=== PATIENT | female | born 1940 | race Caucasian/White ===

== ENCOUNTER 2016-12-02 07:14 | Outpatient (CLI) | payer MEDICARE ==
[2016-12-02 07:33] LABS: Clarity Slightly Cloudy (Clear)
[2016-12-02 07:34] LABS: Bilirubin Negative (Negative); Blood, Urine Trace (Negative); Glucose, Urine (Dipstick) Negative (Negative); Leukocyte Moderate (Negative); Nitrite Positive (Negative); Protein, Urine (Dipstick) Negative (Neg-Trace); Urobilinogen 0.2 mg/dL (0.2-1.0)
[2016-12-02 07:36] LABS: Bacteria/HPF 2+ HPF (None Seen); RBC/HPF 0-3 HPF (0-3)
[2016-12-02 07:47] LABS: Cardiac Risk 3.6 (Less than 4.5)
== END 2016-12-02 07:15 | disposition home or self-care (01) ==
LOC: MADLABBHPM 07:14
PROVIDERS: ATTEND Family Medicine
DX: E78.00 Pure hypercholesterolemia, unspecified (principal); E11.9 Type 2 diabetes mellitus without complications; I10 Essential (primary) hypertension; R79.9 Abnormal finding of blood chemistry, unspecified; E66.9 Obesity, unspecified
CPT/HCPCS: 36415; 80061; 81001; 84443

== ENCOUNTER 2018-03-26 07:09 | Outpatient (CLI) | payer MEDICARE ==
[2018-03-26 08:21] LABS: Anion Gap 14 mmol/L (10-20); BUN (Urea Nitrogen) 19 mg/dL (9.8-20.1); Calc. Creatinine Clearance 0 mL/min (70-130); Calcium 9.9 mg/dL (7.8-10.44); Carbon Dioxide 21 mmol/L (23-31); Chloride 108 mmol/L (98-107); Estimated GFR-MDRD 68; Glucose 147 mg/dL (83-110); Sodium 139 mmol/L (136-145)
== END 2018-03-26 07:10 ==
LOC: MADLABBHPM 07:09
PROVIDERS: ATTEND Family Medicine
DX: N18.3 Chronic kidney disease, stage 3 (moderate) (principal)
CPT/HCPCS: 36415; 80048

== ENCOUNTER 2020-04-13 11:47 | Outpatient (CLI) | payer MEDICARE ==
--- NOTE | 2020-04-13 12:09 | RAD ---
XR Lumbar Spine 2 Or 3 View HISTORY: Acute low back pain COMPARISON: None. FINDINGS: Degenerative changes are present. There is grade 1 anterolisthesis of L4 over L5. No compression frac ture or bony destruction is identified. There are vascular calcifications.
== END 2020-04-13 11:48 | disposition home or self-care (01) ==
LOC: MADRAD 11:47
PROVIDERS: ATTEND Family Medicine
DX: M54.5 Low back pain (principal); M47.816 Spondylosis without myelopathy or radiculopathy, lumbar region; M43.16 Spondylolisthesis, lumbar region; I70.90 Unspecified atherosclerosis
CPT/HCPCS: 72100

== ENCOUNTER 2022-11-10 10:51 | Outpatient (CLI) | payer MEDICARE ==
[2022-11-10 11:42] LABS: Hemoglobin 12.1 g/dL (12.0-16.0); Mean Corpuscular HGB CONC 33.2 g/dL (32.0-36.0); Mean Corpuscular Volume 96.3 fl (78.0-98.0); Mean Platelet Volume 6.3 fL (7.4-10.4); Platelet Count 276 10x3/uL (130-400); RBC Distribution Width 13.9 % (11.5-14.5); Red Blood Cell (RBC) Count 3.78 mill/uL (4.20-5.40); White Blood Cell (WBC) Count 8.6 10x3/uL (4.8-10.8)
[2022-11-10 11:54] LABS: ALT (SGPT) 25 U/L (8-55); AST (SGOT) 30 U/L (5-34); Albumin 3.6 g/dL (3.4-4.8); Alkaline Phosphatase 108 U/L (40-110); Anion Gap 15 mmol/L (10-20); BUN (Urea Nitrogen) 22 mg/dL (9.8-20.1); Bilirubin, Total 0.7 mg/dL (0.2-1.2); Calc. Creatinine Clearance 0 mL/min (70-130); Carbon Dioxide 23 mmol/L (23-31); Cardiac Risk 4.2 (Less than 4.5); Chloride 104 mmol/L (98-107); Cholesterol 174 mg/dl (< 200 Desired); Estimated GFR 73; Globulin 5.4 g/dL (2.4-3.5); Glucose 162 mg/dL (83-110); HDL Cholesterol 41 mg/dL (>60 Neg Risk); LDL Cholesterol, Calculated 101 mg/dL; Potassium 4.3 mmol/L (3.5-5.1); Sodium 138 mmol/L (136-145); Triglycerides 159 mg/dL (Less than 150); Uric Acid 6.8 mg/dL (2.6-6.0)
[2022-11-10 11:58] LABS: Anisocytosis SLIGHT = 6-15 cells (100X) (0-5/hpf); Band 2 % (5-11); Eosinophils 2 % (0-10); Lymphocytes 16 % (21-51); MDiff Complete? YES; Macrocytosis SLIGHT = 6-15 cells (100X) (0-5/hpf); Microcytosis SLIGHT = 6-15 cells (100X) (0-5/hpf); Monocytes 6 % (0-10); Neutrophil 71 % (42-75); Platelet Morphology Comment Appears Adequate; Target Cells SLIGHT = 2-5 cells (100X) (0-1/hpf)
== END 2022-11-10 10:52 | disposition home or self-care (01) ==
LOC: MADLAB 10:51 → MADRAD 10:52
PROVIDERS: ATTEND Internal Medicine
DX: M25.571 Pain in right ankle and joints of right foot (principal); M79.645 Pain in left finger(s); M79.674 Pain in right toe(s); I10 Essential (primary) hypertension; E78.2 Mixed hyperlipidemia; M19.071 Primary osteoarthritis, right ankle and foot; M20.11 Hallux valgus (acquired), right foot; S93.141A Subluxation of metatarsophalangeal joint of right great toe, initial encounter; M15.1 Heberden's nodes (with arthropathy)
CPT/HCPCS: 36415; 80053; 80061; 84550; 85025